=== PATIENT | male | born 1985 | race Caucasian/White ===

== ENCOUNTER 2018-05-12 12:46 | Emergency (ER) | payer MEDICAID ==
[~2018-05-12] VITALS: Ht 167.6 cm; Wt 72.6 kg
[2018-05-12 12:59] VITALS: BP_SYST 108
[2018-05-12] MEDS ORDERED: IBUPROFEN 800 MG TABLET PO ONE (13:30)
[2018-05-12 14:13] VITALS: BP_SYST 110
== END 2018-05-12 14:09 | disposition home or self-care (01) ==
LOC: SED 12:46
DX: S40.011A Contusion of right shoulder, initial encounter (principal); W22.8XXA Striking against or struck by other objects, initial encounter; Y93.89 Activity, other specified; Y92.89 Other specified places as the place of occurrence of the external cause; Y99.8 Other external cause status
CPT/HCPCS: 73000-TC; 99284